=== PATIENT | female | born 1990 | race Caucasian/White ===

== ENCOUNTER 2025-06-12 14:12 | Outpatient (REF) | payer OTHER, SELFPAY ==
--- OUTSIDE RECORDS SUMMARY | 2025-06-07 23:59 | XMS_ITS | Continuity of Care Document ---
Author Organization [facility] Address [address] [place] [id number] Care Team Providers Care Geophysical Manager Name Role Phone Kevin AGUIRRE, Maggy Primary Care Physician En[place] [facility] [place](s[place] 05/08/25 - 06/07/[address] [address] Attending Physician: Allan Beck Admitting Physician: Allan Beck Referring Physician: AdmtrAllan Encounter Type: Triage Allergies, Adverse Reactions, Alerts Substance Criticality Severity Reaction Reaction Severity Status Bactrim 1 Hives Lip swelling Active Nuts Can't breathe deeply enough Active 1Rash developed lawson day after completing Bactrim Immunizations Given and Recorded Vaccine Date Status Refusal Reason influenza virus vaccine, inactivated 1 05/17/24 Gi amari influenza virus vaccine, inactivated 08/27/22 Declan rded influenza virus vaccine, inactivated 2 04/01/21 Gi amari influenza virus vaccine, inactivated 3 05/29/20 Gi amari influenza virus vaccine, inactivated 05/19/17 Give n influenza virus vaccine, inactivated 06/12/14 Give n influenza virus vaccine, inactivated 11/15/11 Give n influenza virus vaccine, inactivated 03/13/10 Give n SARS-CoV-2 (COVID-19) mRNA BNT-162b2 vac 04/18/21 Recorded SARS-CoV-2 (COVID-19) mRNA BNT-162b2 vac 03/26/21 Recorded tetanus/diphtheria/pertussis, acel(Tdap) 07/11/19 Given tetanus/diphtheria/pertussis, acel(Tdap) 01/30/16 Given Influenza Virus Vaccine (oldterm) 03/24/19 Recorde d hepatitis B adult vaccine 12/22/16 Given hepatitis B adult vaccine 01/30/16 Given hepatitis B adult vaccine 4 01/02/16 Given Measles/Mumps/Rubella Virus Vaccine 12/17/16 Recor ded Measles/Mumps/Rubella Virus Vaccine 06/28/96 Given Measles/Mumps/Rubella Virus Vaccine 04/09/93 Given Hepatitis B Vaccine (old term) 12/17/16 Recorded Hepatitis B Vaccine (old term) 92 Given Hepatitis B Vaccine (old term) 92 Given Hepatitis B Vaccine (old term) 92 Given FluLaval (oldterm) 02/25/12 Given Varicella Virus Vaccine 09/30/10 Given Varicella Virus Vaccine 03/09/98 Given Hepatitis A Pediatric Vaccine 09/30/10 Given influ virus vac, H1N1, live(oldterm) 5 06/27/09 Gi amari Human Papillomavirus Vaccine 03/30/08 Given Human Papillomavirus Vaccine 11/29/07 Given Human Papillomavirus Vaccine 09/27/07 Given Meningococcal Poly Vacc (oldterm) 09/27/07 Given Diphth/Pertussis,Acel/Tetanus (oldterm) 09/27/07 G iven Diphth/Pertussis,Acel/Tetanus (oldterm) 06/28/96 G iven Diphth/Pertussis,Acel/Tetanus (oldterm) 08/08/93 G iven Diphth/Pertussis,Acel/Tetanus (oldterm) 92 G iven Diphth/Pertussis,Acel/Tetanus (oldterm) 92 G iven Diphth/Pertussis,Acel/Tetanus (oldterm) 92 G iven tetanus-diphtheria toxoids (Td) 11/15/03 Given Poliovirus Vaccine, Inactivated 06/28/96 Given Poliovirus Vaccine, Inactivated 08/08/93 Given Poliovirus Vaccine, Inactivated 92 Given Poliovirus Vaccine, Inactivated 92 Given Haemophilus B Conj Vaccine (oldterm) 04/09/93 Give n Haemophilus B Conj Vaccine (oldterm) 92 Give n Haemophilus B Conj Vaccine (oldterm) 92 Give n Haemophilus B Conj Vaccine (oldterm) 92 Give n 1Result Comment: [facility]# [id number] 2Result Comment: [facility] [id number] 3Result Comment: [facility]: [id number] 4Result Comment: [01/03/2016] ordered by Chencho Grimes MD 5Admin Note: vis given Medications amitriptyline 75 mg oral tablet 1 tablet = 75 mg, By Mouth, Daily at bedtime, # 90 tablet, 3 Refills, Maintenance, 03/23/25 8:17:00 AM EDT, Tablet, [id number], Partial fill upon patient request if the prescription is for a schedule II opioid drug., 158, cm, 03/23/25 7:45:00 EDT, Height Start Date: 03/23/25 Stop Date: 03/18/26 Status: Ordered Medication Dispense Status: Completed Quantity: 90.0 Unit: tablet Total Allowed Fills: 4 Fills Dispensed: 0 BuPROPion (Eqv-Wellbutrin SR) 150 mg/12 hours oral tablet, extended release TAKE 1 TABLET BY MOUTH DAILY Start Date: 12/27/24 Status: Ordered Medication Dispense Status: Completed Total Allowed Fills: 1 Fills Dispensed: 0 citalopram 10 mg oral tablet TAKE 1 TABLET BY MOUTH EVERY EVENING. TOGETHER WITH 40 MG. TOTAL DAILY DOSE 50 MG Start Date: 12/27/24 Status: Ordered Medication Dispense Status: Completed Total Allowed Fills: 1 Fills Dispensed: 0 citalopram 40 mg oral tablet 1 tablet, By Mouth, Daily, # 90 tablet, 0 Refills, Maintenance, 03/30/25 10:01:00 AM EDT, [id number], 158, cm, 03/23/25 7:45:00 EDT, Height Start Date: 03/30/25 Stop Date: 06/28/25 Status: Ordered Medication Dispense Status: Completed Quantity: 90.0 Unit: tablet Total Allowed Fills: 1 Fills Dispensed: 0 cloNIDine 0.1 mg oral tablet Refills 0, Maintenance, 10/08/23 11:57:00 AM EDT, Partial fill upon patient request if the prescription is for a schedule II opioid drug. Start Date: 10/08/23 Status: Ordered Medication Dispense Status: Completed Total Allowed Fills: 1 Fills Dispensed: 0 Esomeprazole Refills 0, Maintenance, 10/08/23 11:57:00 AM EDT, Partial fill upon patient request if the prescription is for a schedule II opioid drug. Start Date: 10/08/23 Status: Ordered Medication Dispense Status: Completed Total Allowed Fills: 1 Fills Dispensed: 0 hydrOXYzine pamoate 25 mg oral capsule 1 capsule, By Mouth, 3 times a day, PRN NEEDED FOR ANXIETY FOR ANXIETY, # 90 capsule, 0 Refills,Maintenance, 09/03/23 2:42:00 PM EDT, [facility] #[id number], 158, cm, 11/07/21 11:09:00 EDT, Height Start Date: 09/03/23 Status: Ordered Medication Dispense Status: Completed Quantity: 90.0 Unit: capsule Total Allowed Fills: 1 Fills Dispensed: 0 lamotrigine 25 mg oral tablet TAKE 3 TABLETS BY MOUTH DAILY FOR 7 DAYS. 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 Not interested in cessation at this time.; entered on: 08/05/21 Sexual Orientation Self described orien tation: ; Straight or heterosexual Sex Female Sex Representation Female (finding) Patient Care team information Care Team Personnel Name: Maggy Brown NP Position: [facility] PCO Associate Professional Member Role: PCP Address: [address] [place] [address]- Telecom: Care Team Related Persons Name: KIMBERLEY GANDHI Name: ENEDELIA LIRIANO Name: AZIZA SILVESTRE Insurance Providers Guarantor name: MAKAYLA DEANDRA Health Plan Information #: 1 Payer: [facility] Payer Identifier: NA Member Number: [id number] Group Number: [id number] Subscriber Identifier: NA Relationship to Subscriber: self Coverage Type: Medicaid (Managed Care) Coverage Verification Date: NA Telecom: NA Address: NA
[2025-06-12 14:31] LABS: MANUAL DIFF FLAG NO
[2025-06-12 14:56] LABS: Hematocrit 38.7 % (37.0-47.0); Hemoglobin 12.6 g/dl (12.0-16.0); Imm Gran Abs Auto 0.05 X10*3/uL (0.00-0.03); Imm Gran Pct Auto 0.5 % (0.0-0.4); Lymphocytes Absolute Auto 3.5 X10*3/uL (1.2-4.9); Mean Corpuscular HGB Conc 32.6 g/dl (31.0-35.0); Mean Corpuscular Hemoglobin 26.4 pg (27.0-33.0); Mean Corpuscular Volume 81.0 fL (80.0-98.0); NRBC Abs Auto 0.000 X10*3/uL (0.0-0.012); NRBC Pct Auto 0.0 /100WBC (0.0-0.2); Platelet Count 314 X10*3/uL (160-400); Red Blood Count 4.78 X10*6/uL (4.20-5.50); White Blood Count 9.8 X10*3/uL (4.8-10.8)
[2025-06-12 15:52] LABS: Alanine Aminotransferase 16 U/L (0-31); Albumin Level 4.1 g/dL (3.5-5.0); Alkaline Phosphatase 69 U/L (39-117); Anion Gap 10 (12-20); Aspartate Amino Transferase 26 U/L (5-31); Blood Urea Nitrogen 10 mg/dL (9-16); Calcium 8.8 mg/dL (8.4-10.2); Carbon Dioxide 27 mmol/L (22-29); Chloride 106 mmol/L (96-108); Cholesterol 149 mg/dL (<200); Estimated Glomerular Filt Rate > 60; Ferritin 20 ng/mL (10-122); HDL Cholesterol 32 mg/dL (>40); Iron 37 mcg/dL (30-160); Percent Iron Saturation 10 % (15-50); Potassium 4.2 mmol/L (3.3-5.1); Sodium 139 mmol/L (135-145); Total Iron Binding Capacity 364 mcg/dL (228-428); Total Protein 7.3 g/dL (6.5-8.0); Triglycerides 171 mg/dL (<150); Unsaturated Iron Binding 327 ug/dL
[2025-06-12 16:02] LABS: Folate 10.6 ng/mL (> or = 4.0); Vitamin B12 216 pg/mL (200-900)
--- OUTSIDE RECORDS SUMMARY | 2025-06-12 16:41 | XMS_ITS | Data Portability ---
Author Organization [facility] [address] Address [address] [place] [address] Assessment No assessment recorded. Plan of Treatment Reminders Order Date Submit Date Provider Last Modified By Organization Details Last Modified Time Details Appointments None recorded. Lab rapid strep group A, throat 2024 025 [email or web address] 20999[facility], [address] [place] [address], [phone], 5 18:46:58 SARS CoV 2 (COVID-19) Ag, QL, IA, upper respiratory specimen 2022 023 [email or web address] _[facility], [address] [place] [address], [phone], 3 12:54:44 Referral None recorded. Procedures None recorded. Surgeries None recorded. Imaging None recorded. Medication Orders fluticasone propionate 50 mcg/actuati on nasal spray,suspe nsion 2024 025 [id number], [address] [place], [place], [phone], 18:47:03 Patient TargetsNo targets recorded. Patient Instructions Encounter Date Encounter Id Patient Instructions Last Modified By Organization Details Last Modified Time 02/06/2023 [id number] coronavirus (covid-19): care instructions Not available 02/06/2023 12:54:42 Coronavirus (COVID-19) in Children: Care Instructions Not available 02/06/2023 12:54:42 07/13/2024 [id number] sore throat: car e instructions [email or web address] Not available 07/13/2024 18:46:58 Reason for Referral None Reported. Results Created Date Observation Date Name Description Value Unit Range Abnormal Flag Note LastModifiedBy Organization Detail LastModifiedTime 02/07/2002/06/2023 SARS CoV 2 (COVI D-19) Ag, QL, [place], upper respi rator y speci men Unknown Analyte positi ve Not Available [facility] [address] [place], [phone], 02/06/2023 12:31:51 07/13/1907/13/2024 rapid strep group A, throa t Unknown Analyte negati ve Not Available [facility] [address] [place], [address], 07/13/2024 18:34:31 Result Notes None recorded. Problems Name Problem SNOMED Code Status Onset Date Resolution Date Notes Provider Name and Address Organization Details Recorded Time Depressive disorder 48508576 Active 023 CIERA ZAVALUNOV null, [place] - [facility] 3 12:33:04 Anxiety 13765218 Active 023 CIERA ZAVALUNOV null, PA - [facility] 3 12:33:09 Obesity 864215408 Active 023 CIERA ZAVALUNOV null, PA - [facility] 3 12:33:13 Migraine 90692404 Active 023 CIERA ZAVALUNOV null, PA - [facility] 3 12:33:21 Problem Notes None recorded. Procedures Surgical History Date Name Laterality Status Provider Name and Address Organization Details Recorded Time Carpal tunnel surgery completed CIERA CHAITANYAOV PA - [facility] 02/06/2023 12:34:03 extraction of wisdom tooth completed CIERA SALOMONUNOV PA - [facility] 02/06/2023 12:34:08 Imaging Results None recorded. Procedure Notes None recorded. Medical Equipment None Reported. Allergies Allergen ID Allergen Name Allergen Category Reaction Reaction Severity Criticality Documentation Date Start Date Code Code System Note Provider Name and Address Organization Details Recorded Time 164822 Bactrim medicatio n hives mild low 02/06/2023 55954 9 RxNorm FATOU Claudio [facility] 3 12:32:16 918756 nut - unspecifi ed food anaphylax is severe high 02/06/2023 FATOU Claudio [facility] 3 12:32:25 Medications Name Sig Start Date Stop Date Status Note LastModified by Organization Details LastModified Time amoxicillin 500 mg capsule TAKE 1 CAPSULE BY MOUTH TWICE DAILY FOR 10 DAYS 09/21 completed Not Available Not Available Not Available clonidine HCl 0.1 mg tablet TAKE 1 TABLET BY MOUTH TWICE DAILY NEEDED THEN TAKE 1 TABLET BY MOUTH AT BEDTIME NEEDED active Not Available Not Available No t Available prednisone 10 mg tablet 09/21 completed Not Available Not Available Not Available citalopram 40 mg tablet TAKE 1 TABLET BY MOUTH ONCE DAILY WITH 10MG active Not Available Not Available No t Available ibuprofen 800 mg tablet TAKE 1 TABLET BY MOUTH EVERY 8 HOURS NEEDED FOR PAIN 02/06 completed Not Available Not Available Not Available citalopram 10 mg tablet TAKE 1 TABLET BY MOUTH WITH 40 MG TABLET active Not Available Not Available No t Available prazosin 1 mg capsule TAKE 1 CAPSULE BY MOUTH EVERY EVENING active Not Available Not Available No t Available prednisone 20 mg tablet TAKE 2 TABLETS BY MOUTH DAILY FOR 5 DAYS 09/21 completed Not Available Not Available Not Available amitriptyli ne 50 mg tablet TAKE 1 TABLET BY MOUTH DAILY AT BEDTIME active Not Available Not Available No t Available amoxicillin 500 mg tablet TAKE 1 TABLET BY MOUTH EVERY 8 HOURS 02/06 completed Not Available Not Available Not Available amoxicillin 875 mg tablet TAKE 1 TABLET BY MOUTH TWICE DAILY FOR 7 DAYS 09/21 completed Not Available Not Available Not Available benzonatate 100 mg capsule TAKE 1 CAPSULE BY MOUTH AT BEDTIME 07/13 completed Not Available Not Available Not Available cephalexin 500 mg capsule TAKE 1 CAPSULE BY MOUTH TWICE DAILY FOR 10 DAYS 09/21 completed Not Available Not Available Not Available oseltamivir 75 mg capsule Take 1 capsule twice a day by oral route for 5 days. 2024 active Not Available Not Available Not Avai lable hydroxyzine HCl 25 mg tablet TAKE 1 TABLET BY MOUTH THREE TIMES DAILY NEEDED FOR ANXIETY active Not Available Not Available No t Available fluticasone propionate 50 mcg/actuati on nasal spray,suspe nsion SHAKE LIQUID AND USE 2 SPRAYS IN EACH NOSTRIL EVERY DAY active Not Available Not Available No t Available doxycycline hyclate 100 mg tablet TAKE 1 TABLET BY MOUTH TWICE DAILY FOR 7 DAYS 09/21 completed Not Available Not Available Not Available naproxen 500 mg tablet TAKE 1 TABLET BY MOUTH TWICE DAILY FOR 14 DAYS NEEDED FOR MODERATE PAIN WITH FOOD active Not Available Not Available No t Available amoxicillin 875 mg-potassiu m clavulanate 125 mg tablet TAKE 1 TABLET BY MOUTH TWICE DAILY active Not Available Not Available No t Available Ventolin HFA 90 mcg/actuati on aerosol inhaler INHALE 2 PUFFS BY MOUTH EVERY 4 TO 6 HOURS NEEDED FOR SHORTNESS OF BREATH active Not Available Not Available No t Available hydroxyzine pamoate 25 mg capsule TAKE 1 CAPSULE BY MOUTH THREE TIMES DAILY NEEDED FOR ANXIETY active Not Available Not Available No t Available clonidine active Not Available Not Lynda ilable Not Available cholecalcif jesus (vitamin D3) 1,250 mcg (50,000 unit) capsule TAKE 1 CAPSULE BY MOUTH 1 TIME A WEEK 07/13 completed Not Available Not Available Not Available Wegovy 2.4 mg/0.75 mL subcutaneou s pen injector INJECT 2.4MG ROTATING SITES EVERY WEEK active Not Available Not Available No t Available Wegovy 1.7 mg/0.75 mL subcutaneou s pen injector active Not Available Not Available Not Available Wegovy 1 mg/0.5 mL subcutaneou s pen injector active Not Available Not Available Not Available Wegovy 0.25 mg/0.5 mL subcutaneou s pen injector active Not Available Not Available Not Available Wegovy 0.5 mg/0.5 mL subcutaneou s pen injector active Not Available Not Available Not Available Zepbound 2.5 mg/0.5 mL subcutaneou s pen injector INJECT 2.5 MG UNDER THE SKIN EVERY WEEK. ROTATE INJECTION SITES active Not Available Not Available No t Available Vitals Date Recorded Body height Body mass index (BMI) Body weight Pain severity - 0-10 verbal numeric rating [Score] - Reported Body temperature Oxygen saturation Heart rate Respiratory rate Systolic And Diastolic Provider Name and Address Organization Details Last Updated DateTime 5 157.48 cm 45.7 kg/m2 181054. 09 g 7 98.1 [degF] 96 % 100 /min 16 /min 134/89 mm[Hg] Sully Tara PA - [facility] 5 18:34:15 Date Recorded Body height Body mass index (BMI) Body weight Oxygen saturation Respiratory rate Heart rate Body temperature Systolic And Diastolic Provider Name and Address Organization Details Last Updated DateTime 4 157.48 cm 49.2 kg/m2 572134. 35 g 96 % 18 /min 96 /min 99.9 [degF] 133/80 mm[Hg] Yancyanthony Rosales PA - [facility] 4 16:36:05 Date Recorded Body height Body mass index (BMI) Body weight Pain severity - 0-10 verbal numeric rating [Score] - Reported Respiratory rate Oxygen saturation Heart rate Body temperature Systolic And Diastolic Provider Name and Address Organization Details Last Updated DateTime 3 157.48 cm 49.2 kg/m2 279912. 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 [id number] [email or web address] Information not available 09/22/2023 Have You Had A Flu Shot This Season? Yes [email or web address] Information not available 09/22/2023 If No, Would You Like A Flu Shot Today? No [email or web address] Information not available 09/22/2023 What Is Your Water Source? City [email or web address] Information not available 09/22/2023 What Is Your Heat Source? Gas Information not available 09/22/2023 How Much Tobacco Do You Smoke? 1 PPW Information not available 09/22/2023 Have You Recently Traveled Abroad? No Information not available 02/06/2023 Are You Currently In School? No [email or web address] Information not available 09/22/2023 Sex: Unknown Functional Status Question Answer Note LastModified by Organizat ion Details LastModified Time Do you use any illicit or recreational drugs? No Information not available 02/06/2023 What is your level of alcohol consumption? None Information not available 02/06/2023 Are you currently employed? Yes Information not available 02/06/2023 Mental Status None recorded. Family History Nothing Reported. Medical History No medical history recorded. Gynecological History Statement/Question Response Date of LMP 07/02/2024 Is there any chance of ? No LMP Approximate Obstetrics History GPAL:G 0 P 0 0 0 0 Past Encounters Encounter ID Performer Location Encounter Start Date Encounter Closed Date Diagnosis/Indication Diagnosis SNOMED-CT Code Diagnosis ICD10 Code Diagnosis IMO Codes Diagnosis Note [id number] [address] [address] 03/19/2022 18:42:03 03/19/2022 19:38:53 [id number] [address] [place] [address] 01/31/2021 17:09:00 01/31/2021 19:25:24 [id number] [address] [address] [address] 03/23/2021 16:09:34 03/23/2021 17:29:03 [id number] [place] [address] [place] [address] 02/06/2023 12:22:37 02/06/2023 13:00:57 COVID-19 409665249 U07.1 Your covid test was positive Covid is caused by a virus that is highly contagious . If you have any family member that have been exposed they typically will start to show symptoms in 48-72 hours. You are considered contagious for 5 Days after the start of the fever. You should isolate and not go to work, sports, events during this quarantine period. The following are my recommenda tions to help with your symptoms while your body fights this infection: 1. Take Ibuprofen or Tylenol if you do not have any allergies to these medication s. If you take a blood thinner you should not take NSAIDS like Ibuprofen. These medication will help with the inflammati on in your respirator y tract which should help the cough.2. Do not take any decongesta nts at this time because this will dry out that tract too much. If you have a lot of nasal congestion you can try nasal decongesta nts, but I would not take them more than 5 days.3. Use a humidifier or add a cup of water by your bed. Sometimes if our sleeping environmen t is too dry this can lead to cough4. Salt Water Gargles5. Saline nasal spray is helpful.6. Would recommend taking a antihistam ine to help with the congestion .7. Clean Surfaces regularly and try to stay isolated from family members. I would be seen again if you develop any of the following. 1. Cough develops last longer than 3 weeks.2. Develop shortness of breath or wheezing.3 . Severe Headache with vision changes4. Stiff Neck5. Fever does not reduce a few points with Ibuprofen or Tylenol. I would go immediatel y to the Emergency Room if you develop:1. Chest Pain2. Severe Shortness of breath3. Coughing up Blood. I would be seen again if you develop any of the following symptoms.1 . Fever > 101.02. Stiff neck - where you can't turn your neck3. Trouble swallowing your saliva - drooling4. Swelling of a lymph node in your throat that is painful to touch5. Difficulty breathing6 . Severe Headache Thank you for using [facility] today, please feel free to contact our office if you have any questions or concerns. [id number] Antonia Forde [place] [address] [facility] [address] [place] [address] 09/22/2023 15:31:13 09/22/2023 16:56:41 History and physical examination, pre-employment [id number] Z02.1 [id number] [facility] [address] [address] [place] [address] 07/13/2024 18:23:37 07/13/2024 18:47:44 Acute pharyngitis 509854703 J02.9 Based on your Presentati on, Exam, and Lab Testing you are being diagnosed with Pharyngiti s. Your Rapid Strep Test was Negative. Most likely your sore throat is being caused by a virus, post nasal drip, or silent acid reflux. The following are my other recommenda tions to help with symptoms and is important for this diagnosis: 1. Take Ibuprofen or Tylenol if you do not have any allergies to these medication s. If you take a blood thinner you should not take NSAIDS like Ibuprofen. These medication will help with the inflammati on in your respirator y tract which should help the cough. (I would alternate between Tylenol 650 mg and your Ibuprofen 600 mg every 4 hours)2. Steroid nasal sprays like Flonase or Nasonex (or generic) can help with postnasal drainage2. Do not take any Cold Medication s that have a Decongesta nt in it - this will dry out your throat and make the sore throat worse.3. Drinking Hot Tea with honey can help coat and soothe your throat. I would be seen again if you develop any of the following symptoms.1 . Fever > 101.02. Stiff neck - where you can't turn your neck3. Trouble swallowing your saliva - drooling4. Swelling of a lymph node in your throat that is painful to touch5. Difficulty breathing6 . Severe Headache Thank you for using [facility] today, please feel free to contact our office if you have any questions or concerns. Health Concerns Section Related Observation LastModified by Organization Detai ls LastModified Time None Recorded Concern Status LastModified by Organization Details LastModified Time None Recorded Advance Directives Directive None Recorded Payers Insurance Date Sequence Insurance Name Policy Number Policy Oreilly Covered Member ID Oreilly Member ID Guarantor Name 07/13/2024 PAY AT TOS Ariadna Aguilar SELF SELF Ariadna Aguilar 07/13/2024 OC-PAY AT TIME OF SERVICE 2022 Ariadna Aguilar SELF SELF Ariadna Aguilar 09/22/2023 1 [facility] [id number] Ariadna Aguilar [id number] Ariadna Aguilar 07/13/2024 2 [place] [facility] Ariadna Aguilar [id number] Ariadna Aguilar 07/13/2024 1 [facility] (MEDICAID HMO) [id number] Ariadna Aguilar [id number] Ariadna Aguilar Notes Date Note Type Note Provider Name and Address Organization Details Recorded Time 02/06/2023 text/html CoughReported by PatientHPIFor associated symptoms, patient reportsfeverbut reportsno chills,no chest pain,no heartburn,no nausea,no vomiting,no edema,no agitation,no wheezing, andno post nasal drip. For source of patient information, patient reportsinformation obtained from patientandpatient arrived at urgent care ambulatory. For context, patient reportspatient denies vaping,non-smoker, andfamily members ill with similar symptoms. x1 day found out covid pos at home--- congestion, rhintis, headache, suspects being febrile. 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 Antonia Forde MD [address] [place], [address], [place] - [facility] 09/23/2023 18:27:26 07/13/2024 text/html 34 y/o female here with sore throat for 2 days, some cough and congestion starting today, fatigue, no fevers, chills, body aches FATOU Sosa [address] [place], [address], [place] - [facility] 07/13/2024 18:59:26 OBGyn Episode No OBEpisode recorded.
--- OUTSIDE RECORDS SUMMARY | 2025-06-12 16:41 | XMS_ITS ---
Author Name [facility] Organization Unknown Encounters Encounter Type Encounter Reason Primary Diagnosis Location Date Ambulatory [facility]. ([facility]) 07/13/2024
--- OUTSIDE RECORDS SUMMARY | 2025-06-12 16:41 | XMS_ITS | Clinical Summary ---
Author Organization [facility] it Address [address] [place] [address] Care Team Providers Care Power And Recovery Superintendent Name Role Phone Maggy Singleton NP Primary Care Provider [phone] Surgical History Surgery Date Site/Laterality Comments VAGINAL DELIVERY PROCEDURE: DE VAGINAL DELIVERY ONLY WISDOM TOOTH EXTRACTION PROCEDURE: HISTORICAL WISDOM TEETH EXTRACTION CARPAL TUNNEL RELEASE PROCEDURE: DE NEUROPLASTY &/TRANSPOS MEDIAN NRV CARPAL TUNNE; COMMENT: left and right wrist Medical History Medical History Date Comments Anxiety DX:Anxiety Depression DX:Depression Genital HSV DX:Genital HSV History of chlamydia DX:History of chlamydia Migraines DX:Migraines Obesity DX:Obesity 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 Social History Tobacco Use Types Packs/Day Years Used Date Smoking Tobacco: Every Day Alcohol Use Standard Drinks/Week Comments Yes 0 (1 standard drink = 0.6 oz pur e alcohol) Comments Unknown Sex and Gender Information Value Date Recorded Sex Assigned at Not on file Legal Sex Female 5:38 AM EST Gender Identity Not on file Sexual Orientation Not on file Last Filed Vital Signs Vital Sign Reading Time Taken Comments Blood Pressure 126/77 08/10/2023 1:30 PM EST Pulse 93 08/10/2023 1:30 PM EST Temperature - - Respiratory Rate - - Oxygen Saturation - - Inhaled Oxygen Concentration - - Weight 119 kg (263 lb) 11/26/2023 9:33 AM EDT Height 158.8 cm (5' 2.5 ) 08/10/2023 1:30 PM EST Body Mass Index 47.34 08/10/2023 1:30 PM EST Plan of Treatment Health Maintenance Due Date Last Done Comments DTaP,Tdap,and Td Vaccines (1 - Tdap) 01/28/2011 Hepatitis B Vaccines (1 of 3 - 19+ 3-dose series) 01/28/2011 Pneumococcal Vaccine: Pediat rics (0 to 5 Years) and At-Risk Patients (6 to 49 Years) (1 of 2 - PCV) 01/28/2011 Cervical Cancer Screening: P ap Smear 01/28/2013 HPV Vaccines (1 - 3-dose SCD M series) 01/28/2019 HIV Screening 05/18/2022 Hepatitis C Screening 05/18/2022 Social Influencers of Health Screening 05/18/2022 Depression Screening 06/15/2024 COVID-19 Vaccine (1 - 2024-2 6 season) 2025 Influenza Vaccine (#1) 2025 RSV Immunization Adult Patie nts (1 - 1-dose 75+ series) 01/28/2067 HIB Vaccines Aged Out No longer eligi ble based on patient's age to complete this topic Hepatitis A Vaccines Aged Out No long er eligible based on patient's age to complete this topic IPV Vaccines Aged Out No longer eligi ble based on patient's age to complete this topic MMR Vaccines Aged Out No longer eligi ble based on patient's age to complete this topic Meningococcal ACWY Vaccine Aged Out N o longer eligible based on patient's age to complete this topic Meningococcal B Vaccine Aged Out No l onger eligible based on patient's age to complete this topic RSV Immunization Patients Un ya 20 months Aged Out No longer eligible b ased on patient's age to complete this topic Varicella Vaccines Aged Out No longer eligible based on patient's age to complete this topic Care Teams Power And Recovery Superintendent Relationship Specialty Start Date End Date Maggy Singleton NP [facility] [address] [place] [address] PCP - General 11/22/21
== END 2025-06-12 14:13 ==
LOC: HO.LAB 14:12
PROVIDERS: PCP Nurse Practitioner Family; Visit Provider Surgery
DX: K21.9 Gastro-esophageal reflux disease without esophagitis (principal); E11.9 Type 2 diabetes mellitus without complications; E66.01 Morbid (severe) obesity due to excess calories
CPT/HCPCS: 36415; 80053; 80061; 82306; 82607; 82728; 82746; 83036; 83525; 83540; 84425; 84443; 84590; 84630; 85025; 86140